=== PATIENT | female | born 1960 | race Two or more races ===

== ENCOUNTER → 2020-02-07 15:26 | Outpatient (CLI) | payer SELFPAY ==
[2020-02-07 15:04] VITALS: BMI 38.4
[2020-02-07 17:14] LABS: T4 Free Direct 0.91 ng/dL (0.76-1.46); Thyroid Stim Hormone (TSH) 1.19 uIU/mL (0.358-3.74)
== END ==
PROVIDERS: PCP Internal Medicine; Referring Provider Internal Medicine Endocrinology, Diabetes & Metabolism; Visit Provider Internal Medicine Endocrinology, Diabetes & Metabolism
DX: E04.9 Nontoxic goiter, unspecified (principal)
CPT/HCPCS: 36415; 84439; 84443